=== PATIENT | female | born 1950 | race Caucasian/White ===

== ENCOUNTER → 2019-11-09 10:19 | Outpatient (CLI) | payer MEDICARE, SELFPAY ==
--- NOTE | ~2019-11-09 | XR_ITS ---
XR knee LT 2V DATE: 11/09/2019 10:35 INDICATION: Chronic left knee pain TECHNIQUE: Standing AP and lateral views COMPARISON: None FINDINGS: There is joint space narrowing and periarticular spurring at the patellofemoral and medial compartments. The lateral compartment joint space is well preserved. No fracture or dislocation or joint effusion. No periosteal reaction or bone destruction. 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
== END ==
PROVIDERS: PCP Nurse Practitioner Family; Visit Provider Nurse Practitioner Family
DX: M17.12 Unilateral primary osteoarthritis, left knee (principal); M25.562 Pain in left knee
CPT/HCPCS: 73560

== ENCOUNTER 2020-01-31 07:58 | Outpatient (CLI) | payer MEDICARE, SELFPAY ==
--- NOTE | ~2020-01-31 | MR_ITS ---
EXAMINATION: MR knee LT wo con DATE: 01/31/2020 09:38 INDICATION: Left knee pain. TECHNIQUE: Magnetic resonance imaging (MRI) of the left knee was performed without intravenous contra st. Sequences included axial PD-weighted FS FSE, coronal PD-weighted FSE and PD-weighted FS FSE, sagi ttal PD-weighted FSE, and sagittal T2-weighted FS FSE. COMPARISON: Left knee radiographs 11/09/2019 FINDINGS: Medial compartment: There is an undersurface horizontal tear involving body and posterior horn of medial meniscus. There is a 2.3 x 4.7 x 1.0 cm multiloculated paralabral cyst. There is shallow partial-thickness cartilage loss of tibial condyle and femoral condyle. There is deep partial thickness cartilage loss of femoral condyle involving the central and medial articular surface. Osteophytes are noted. Lateral compartment: Lateral meniscus is normal. There is cartilage surface irregularity of tibial condyle. There is shall ow partial-thickness cartilage loss of femoral condyle involving the central articular surface. There are tiny marginal osteophytes. Patellofemoral compartment: There is full-thickness cartilage loss of patellar medial and lateral facets and median ridge with sm all subchondral cysts. There is full-thickness cartilage loss of medial trochlea with small subchondr al cysts and mild subchondral bone marrow edema-like signal intensity. Ligaments and tendons: The anterior and posterior cruciate ligaments are normal. There are changes of prior sprains of media l collateral ligament and fibular collateral ligament characterized with thickening and increased sig nal intensity proximally. There is mild patellar tendinopathy. Fluid: There is no knee joint effusion. There is mild prepatellar and superficial infrapatellar bursitis. IMPRESSION: 1. Severe chondrosis of patellofemoral compartment, moderate chondrosis of medial compartment, and mi ld chondrosis of lateral compartment. 2. Tear of medial meniscus with large paralabral cyst. Reviewed, dictated and finalized at location A. IMPRESSION: 1. Severe chondrosis of patellofemoral compartment, moderate chondrosis of medi al compartment, and mild chondrosis of lateral compartment. 2. Tear of medial meniscus with large paralabral cyst.
== END 2020-01-31 07:59 | disposition home or self-care (01) ==
PROVIDERS: PCP Internal Medicine; Visit Provider Nurse Practitioner Family
DX: M25.562 Pain in left knee (principal); M22.2X2 Patellofemoral disorders, left knee; S83.242A Other tear of medial meniscus, current injury, left knee, initial encounter; M24.852 Other specific joint derangements of left hip, not elsewhere classified
CPT/HCPCS: 73721

== ENCOUNTER → 2020-11-26 09:26 | Outpatient (CLI) | payer MEDICARE, SELFPAY ==
--- NOTE | ~2020-11-26 | MR_ITS ---
EXAMINATION: MR lumbar spine wo con DATE: 11/26/2020 10:27 INDICATION: Lumbago. TECHNIQUE: Magnetic resonance imaging (MRI) of the lumbar spine was performed without intravenous con trast. Sequences included sagittal T2-weighted FSE, sagittal T2-weighted FS FSE, sagittal T1-weighted FSE, and axial T2-weighted FSE. COMPARISON: None FINDINGS: Bone alignment is normal. Vertebral body heights are normal. There is severely decreased di sc height at L2-L3, mildly decreased disc height at L3-L4, moderately decreased disc height at L4-L5, and mildly decreased disc height at L5-S1. The distal spinal cord signal intensity is normal. The co nus medullaris is at L1. The following disc levels are specifically discussed: L1-L2: The disc is bulging. There is mild bilateral facet joint osteoarthritis. There is mild left ne ural foraminal stenosis. There is mild central canal stenosis. L2-L3: The disc is bulging and has an annular fissure. There is moderate right and mild left facet manuel int osteoarthritis. There is mild bilateral neural foraminal stenosis. There is mild central canal st enosis. L3-L4: The disc is bulging and has an annular fissure. There is moderate bilateral facet joint osteoa rthritis. There is mild bilateral neural foraminal stenosis. There is mild central canal stenosis. L4-L5: The disc is bulging with superimposed left subarticular zone extrusion. There is severe bilate ral facet joint osteoarthritis. There is mild right and moderate left neural foraminal stenosis. Ther e is mild central canal stenosis with asymmetry stenosis of left lateral recess. L5-S1: The disc is bulging and has an annular fissure. There is mild bilateral facet joint osteoarthr itis. There is mild bilateral neural foraminal stenosis. There is mild central canal stenosis. IMPRESSION: 1. Severe lumbar spondylosis. Reviewed, dictated and finalized at location A. TS RECRUITER
== END ==
PROVIDERS: PCP Internal Medicine; Visit Provider Nurse Practitioner Family
DX: M54.5 Low back pain (principal); M47.816 Spondylosis without myelopathy or radiculopathy, lumbar region
CPT/HCPCS: 72148

== ENCOUNTER → 2020-12-17 12:10 | Outpatient (CLI) | payer MEDICARE, SELFPAY ==
--- NOTE | ~2020-12-17 | MM_ITS ---
EXAMINATION: MM screening [facility] BI w rai HISTORY: Screening mammogram TECHNIQUE: Craniocaudal and mediolateral oblique 3-D tomosynthesis images were obtained and synthetic 2-D images were generated. CAD analysis was submitted and interpreted. COMPARISON: 02/23/2019, 02/20/2018, 01/22/2017 BREAST PARENCHYMAL COMPOSITION: There are scattered areas of fibroglandular density. FINDINGS: There is no evidence of suspicious mass, calcification, or architectural distortion to sugg est malignancy in either breast. There has been no suspicious interval change. IMPRESSION: 1. No mammographic evidence of malignancy. 2. Recommend routine screening mammography in one year. BI-RADS Category 1: Negative Reviewed, dictated and finalized at location A.
== END ==
PROVIDERS: PCP Internal Medicine; Visit Provider Obstetrics & Gynecology
DX: Z12.31 Encounter for screening mammogram for malignant neoplasm of breast (principal)
CPT/HCPCS: 77063; 77067

== ENCOUNTER → 2021-02-27 15:53 | Outpatient (CLI) | payer MEDICARE, SELFPAY ==
--- NOTE | ~2021-02-27 | MR_ITS ---
EXAMINATION: MR lumbar spine wo con DATE: 02/27/2021 16:45 INDICATION: Low back pain with radiculopathy. TECHNIQUE: Magnetic resonance imaging (MRI) of the lumbar spine was performed without intravenous con trast. Sequences included sagittal T2-weighted FSE, sagittal T2-weighted FS FSE, sagittal T1-weighted FSE, and axial T2-weighted FSE. COMPARISON: Lumbar spine MRI 11/26/2020 FINDINGS: There is 7 degrees levocurvature of lumbar spine. Vertebral body heights are normal. There is mildly decreased disc height at L1-L2, severely decreased disc height at L2-L3, mildly decreased d isc height at L3-L4, moderately decreased disc height at L4-L5, and mildly decreased disc height at L 5-S1 with endplate remodeling. The distal spinal cord signal intensity is normal. The conus medullari s is at L1-L2. The following disc levels are specifically discussed: L1-L2: The disc is bulging. There is mild bilateral facet joint osteoarthritis. There is mild bilater al neural foraminal stenosis. There is mild central canal stenosis. L2-L3: The disc is bulging and has an annular fissure. There is severe right and moderate left facet joint osteoarthritis. There is moderate right and mild left neural foraminal stenosis. There is mild central canal stenosis. L3-L4: The disc is bulging and has an annular fissure. There is severe right and moderate left facet joint osteoarthritis. There is mild bilateral neural foraminal stenosis. There is mild central canal stenosis. L4-L5: The disc is bulging with superimposed left subarticular zone extrusion with interval improveme nt. There is severe bilateral facet joint osteoarthritis. There is mild right and moderate left neura l foraminal stenosis. There is mild central canal stenosis. L5-S1: The disc is bulging. There is moderate bilateral facet joint osteoarthritis. There is mild carmenza ateral neural foraminal stenosis. There is mild central canal stenosis. IMPRESSION: 1. Severe lumbar spondylosis with interval improvement in the left subarticular zone extrusion at L4- L5. Reviewed, dictated and finalized at location A. IMPRESSION: 1. Severe lumbar spondylosis with interval improvement in the left subarticular zone extrusion at L4-L5.
== END ==
PROVIDERS: PCP Internal Medicine; Visit Provider Neurological Surgery
DX: M54.16 Radiculopathy, lumbar region (principal); M47.816 Spondylosis without myelopathy or radiculopathy, lumbar region
CPT/HCPCS: 72148

== ENCOUNTER → 2021-08-28 12:08 | Outpatient (CLI) | payer MEDICARE, SELFPAY ==
--- NOTE | ~2021-08-28 | DEXA_ITS ---
Bone Density Report Name: FREDDY STEPHEN Age: 71 Sex: Female Ethnicity: White Date of : 1950 Indication: postmenopausal; screening for osteoporosis; height loss; hysterectomy; secondary osteoporosis; Referring Provider: TING, IGOR Fagan Study: Bone densitometry was performed. Exam Date: August 28, 2021 Accession number: [id number] Bone Density: Region BMD T-score Z-score Classification AP Spine (L1, L4) 1.063 0.2 2.3 Normal Femoral Neck (Left) 0.847 0.0 1.7 Normal Total Hip (Left) 0.905 -0.3 1.2 Normal Femoral Neck (Right) 0.888 0.4 2.1 Normal Total Hip (Right) 0.919 -0.2 1.3 Normal Total Hip Mean 0.912 -0.3 1.3 Normal World Health Organization criteria for BMD impression classify patients as: Normal (T-score at or above -1.0), Osteopenia (T-score between -1.0 and -2.5), or Osteoporosis (T-score at or below -2.5). 10-year Fracture Risk: FRAX not reported because: All T-scores for Spine Total, Hip Total, Femoral Neck at or above -1.0 Previous Exams: Region Exam Age BMD T-score BMD Change BMD Change Date g/cm2 vs Baseline vs Previous AP Spine(L1, L4) 08/28/2021 71 1.063 0.2 -0.018 -0.010 09/02/2011 61 1.074 0.3 -0.007 -0.007 04/10/2008 57 1.081 0.4 Total Hip(Left) 08/28/2021 71 0.905 -0.3 -0.076* -0.054* 09/02/2011 61 0.960 0.1 -0.022 -0.022 04/10/2008 57 0.981 0.3 Total Hip(Right) 08/28/2021 71 0.919 -0.2 -0.089* -0.040* 09/02/2011 61 0.960 0.1 -0.049* -0.049* 04/10/2008 57 1.008 0.5 *Denotes significance at 95% confidence level, LSC for AP Spine = 0.022 g/cm2, LSC for Total Hip = 0.027 g/cm2 Clinical Information Provided by Patient: Has secondary osteoporosis Has the following medical conditions: Hysterectomy Patient maximum height was 68.5 Menopause Age: 46 Drinks caffeinated beverages Onset of menses at age 14 Number of children 1 Impression: The patient has normal bone mass. The BMD for the Total Hip(Left) decreased, changing by -0.054 since the last DXA exam. The BMD for the Total Hip(Right) decreased, changing by -0.040 since the last DXA exam. Discussion: BONE DENSITY IS ABOVE THE MINIMUM DESIRABLE LEVEL AT ALL SKELETAL SITES TESTED. This patient?s bone mineral density is above the minimum desirable level (T-score -1.0 or better) at all sites measured. The patient should fo
== END ==
PROVIDERS: PCP Internal Medicine; Visit Provider Internal Medicine
DX: M81.0 Age-related osteoporosis without current pathological fracture (principal)
CPT/HCPCS: 77080

== ENCOUNTER → 2022-01-29 10:22 | Outpatient (CLI) | payer MEDICARE, SELFPAY ==
--- NOTE | ~2022-01-29 | MM_ITS ---
EXAMINATION: MM screening [facility] BI w rai HISTORY: Screening TECHNIQUE: Craniocaudal and mediolateral oblique 3-D tomosynthesis images were obtained and synthetic 2-D images were generated. CAD analysis was submitted and interpreted. COMPARISON: Comparison to multiple prior studies sequentially, with oldest reviewed study dated 11/06. BREAST PARENCHYMAL COMPOSITION: There are scattered areas of fibroglandular density. FINDINGS: There is no evidence of suspicious mass, calcification, or architectural distortion to sugg est malignancy in either breast. There has been no suspicious interval change. IMPRESSION: 1. No mammographic evidence of malignancy. 2. Recommend routine screening mammography in one year. BI-RADS Category 1: Negative Reviewed, dictated and finalized at location A.
== END ==
PROVIDERS: PCP Internal Medicine; Visit Provider Internal Medicine
DX: Z12.31 Encounter for screening mammogram for malignant neoplasm of breast (principal)
CPT/HCPCS: 77063; 77067

== ENCOUNTER 2022-09-11 01:18 | Day surgery (SDC) | payer MEDICARE, SELFPAY ==
[2022-08-29 15:10] VITALS: BMI 22.4
--- NOTE | 2022-09-10 12:25 | PM.HPGS ---
History of Present Illness History of Present Illness Consent: Risks, benefits, and alternatives have been discussed and questions answered. Patient agrees to proceed with procedure. Chief complaint: family hx of colon cancer Narrative: Chelly Velazquez is a 72 year old female Referred for colon cancer screening. She has a family history of colon cancer, her father. Review of Systems Review of Systems: All systems reviewed & are unremarkable except as noted in HPI and below PMFSH Past Medical History Medical History Diabetes type 2, controlled High cholesterol History of ectopic (~1980) RSO Hypertension Ruptured disk (04/21/20) Surgical History Surgical History History of arthroscopy of knee (07/16/17) lt knee History of foot surgery (12/20/18) right foot--2 hammer toes History of hand surgery (08/23/13) History of right oophorectomy (~1980) result of an ectopic History of total abdominal hysterectomy (~1995) [facility] W/ LSO--ovarian cysts/abnormal uterine bleeding Family History Family History Sibling Acute myocardial infarction brother Father Carcinoma of colon Mother Rheumatoid arthritis Other Depression Diabetes mellitus Family history of arthritis Family history of cataracts Family history of thyroid disease Social History Social History Smoking packs per day: 0.5 Smoking cigarettes per day: 10.0 Years smoked: 10 Smoking pack-years: 5.00 Smoking status: Former smoker Tobacco type: cigarettes Alcohol intake: current Alcohol use details: 1 per month Substance use: never Substance use type: does not use Living arrangements: with family Additional living arrangements comments: Gender identity (if verbalized by the patient): Female Sexual Orientation (if Verbalized by the Patient): Straight or Heterosexual Spiritual care concerns: No Meds Home Medications and Allergies Home Medications Medication Instructions Recorded Confirmed Type aspirin 81 mg tablet,delayed 81 mg PO DAILY 02/04/22 08/29/22 History release (Adult Aspirin Regimen) cholecalciferol (vitamin D3) 25 25 mcg PO DAILY 02/04/22 08/29/22 History mcg (1,000 unit) capsule empagliflozin 10 mg-linagliptin 5 1 tablet PO DAILY 02/04/22 08/29/22 History mg tablet (Glyxambi) hydrochlorothiazide 12.5 mg tablet 12.5 mg PO DAILY 02/04/22 08/29/22 History insulin aspart 7 unit subcut DAILY 02/04/22 08/29/22 History (niacinamide)(U-100) 100 unit/mL(3 mL) subcutaneous pen (Fiasp FlexTouch U-100 Insulin) insulin glargine U-300 conc 300 30 unit subcut DAILY 02/04/22 08/29/22 History unit/mL (1.5 mL) subcutaneous pen (Toujeo SoloStar U-300 Insulin) krill oil 1,000 mg-om3 130 mg-dha cap PO 02/04/22 02/04/22 History 40 mg-epa 80 at-yn2-ngs-astax cap losartan 50 mg-hydrochlorothiazide 1 tablet PO DAILY 02/04/22 08/29/22 History 12.5 mg tablet magnesium chloride 71.5 mg 71.5 mg PO BID 02/04/22 08/29/22 History (magnesium chloride) tablet,delayed release (Slow-Mag) metformin 850 mg tablet 850 mg PO BID 02/04/22 08/29/22 History omeprazole magnesium 20 mg 20 mg PO DAILY 02/04/22 08/29/22 History tablet,delayed release (Prilosec OTC) pen needle, diabetic 31 gauge x 02/04/22 02/04/22 History 3/16 (Droplet Pen Needle) simvastatin 20 mg tablet (Zocor) 20 mg PO DAILY 02/04/22 08/29/22 History zolpidem 5 mg tablet 5 mg PO QHS PRN Insomnia 02/04/22 08/29/22 History Allergies Allergy/AdvReac Type Severity Reaction Status Date / Time erythromycin base Allergy Unknown Gastrointestinal Verified 09/11/22 06:16 Upset Penicillins Allergy Unknown Hives Verified 09/11/22 06:16 Exam Const: General: alert Orientat
[2022-09-11] MEDS: LACTATED RINGERS 1,000 ML 150 ML IV CONT (06:30)
[2022-09-11 06:31] VITALS: BP 119/68; PULSE 103; RESP 18; TEMP 35.9; O2SAT 100
--- NOTE | 2022-09-11 07:12 | WPDANESEPPF ---
Anes - Initial Pre Proc Eval Procedure: Operation Date: 09/11/22 07:30 Proposed Procedures p Screening Colonoscopy - Terrell Hensley MD Date/Time: 09/11/22 07:12 Surgeon: Terrell Hensley MD Pre Op Diagnosis: family hx of colon cancer Patient Data Age: 72 Gender: F Height: 1.7 m Weight: 63.9 kg Last Vital Signs Temp 35.9 C L 09/11/22 06:31 Pulse 103 H 09/11/22 06:31 Resp 18 09/11/22 06:31 BP 119/68 09/11/22 06:31 Pulse Ox 100 09/11/22 06:31 O2 Del Method Room Air 09/11/22 06:31 Allergies Allergy/AdvReac Type Severity Reaction Status Date / Time erythromycin base Allergy Unknown Gastrointestinal Verified 09/11/22 06:16 Upset Penicillins Allergy Unknown Hives Verified 09/11/22 06:16 Home Medications Medication Instructions Recorded Confirmed Type aspirin 81 mg tablet,delayed 81 mg PO DAILY 02/04/22 08/29/22 History release (Adult Aspirin Regimen) cholecalciferol (vitamin D3) 25 25 mcg PO DAILY 02/04/22 08/29/22 History mcg (1,000 unit) capsule empagliflozin 10 mg-linagliptin 5 1 tablet PO DAILY 02/04/22 08/29/22 History mg tablet (Glyxambi) hydrochlorothiazide 12.5 mg tablet 12.5 mg PO DAILY 02/04/22 08/29/22 History insulin aspart 7 unit subcut DAILY 02/04/22 08/29/22 History (niacinamide)(U-100) 100 unit/mL(3 mL) subcutaneous pen (Fiasp FlexTouch U-100 Insulin) insulin glargine U-300 conc 300 30 unit subcut DAILY 02/04/22 08/29/22 History unit/mL (1.5 mL) subcutaneous pen (Toujeo SoloStar U-300 Insulin) krill oil 1,000 mg-om3 130 mg-dha cap PO 02/04/22 02/04/22 History 40 mg-epa 80 ox-do0-oyh-astax cap losartan 50 mg-hydrochlorothiazide 1 tablet PO DAILY 02/04/22 08/29/22 History 12.5 mg tablet magnesium chloride 71.5 mg 71.5 mg PO BID 02/04/22 08/29/22 History (magnesium chloride) tablet,delayed release (Slow-Mag) metformin 850 mg tablet 850 mg PO BID 02/04/22 08/29/22 History omeprazole magnesium 20 mg 20 mg PO DAILY 02/04/22 08/29/22 History tablet,delayed release (Prilosec OTC) pen needle, diabetic 31 gauge x 02/04/22 02/04/22 History 3/16 (Droplet Pen Needle) simvastatin 20 mg tablet (Zocor) 20 mg PO DAILY 02/04/22 08/29/22 History zolpidem 5 mg tablet 5 mg PO QHS PRN Insomnia 02/04/22 08/29/22 History Patient hx anesthesia problems: none Family hx anesthesia problems: none Results Review: All pre-operative results and documents have been reviewed as part of the pre-operative evaluation. [facility] Past Medical History Medical History Diabetes type 2, controlled High cholesterol History of ectopic (~1980) RSO Hypertension Ruptured disk (04/21/20) Surgical History Surgical History History of arthroscopy of knee (07/16/17) lt knee History of foot surgery (12/20/18) right foot--2 hammer toes History of hand surgery (08/23/13) History of right oophorectomy (~1980) result of an ectopic History of total abdominal hysterectomy (~1995) [facility] W/ LSO--ovarian cysts/abnormal uterine bleeding Family History Family History Sibling Acute myocardial infarction brother Father Carcinoma of colon Mother Rheumatoid arthritis Other Depression Diabetes mellitus Family history of arthritis Family history of cataracts Family history of thyroid disease Social History Social History Smoking packs per day: 0.5 Smoking cigarettes per day: 10.0 Years smoked: 10 Smoking pack-years: 5.00 Smoking status: Former smoker Tobacco type: cigarettes Alcohol intake: current Alcohol use details: 1 per month Substance use: never Substance use type: does not use Living arrangements: with family Additional living arrangements comments: mar
[2022-09-11 07:20] LABS: Glucose Point of Care 149 mg/dl (65-105)
[2022-09-11 07:46] VITALS: BP 91/51; PULSE 100; RESP 19; O2SAT 98
[2022-09-11 07:56] VITALS: BP 118/59; PULSE 83; RESP 23; O2SAT 100
[2022-09-11 08:06] VITALS: BP 116/67; PULSE 79; RESP 20; O2SAT 100
[2022-09-11 08:09] LABS: Glucose Point of Care 128 mg/dl (65-105)
== END 2022-09-11 08:19 | disposition home or self-care (01) ==
PROVIDERS: PCP Internal Medicine; Visit Provider Internal Medicine Gastroenterology
PROC: 0DJD8ZZ Inspection of Lower Intestinal Tract, Via Natural or Artificial Opening Endoscopic (ICD-10-PCS; CPT 45378; principal; 2022-09-11 07:30)
DX: Z12.11 Encounter for screening for malignant neoplasm of colon (principal); K57.30 Diverticulosis of large intestine without perforation or abscess without bleeding; Z80.0 Family history of malignant neoplasm of digestive organs; E11.9 Type 2 diabetes mellitus without complications; E78.00 Pure hypercholesterolemia, unspecified; I10 Essential (primary) hypertension; Z87.891 Personal history of nicotine dependence; Z79.82 Long term (current) use of aspirin; Z79.4 Long term (current) use of insulin; Z79.84 Long term (current) use of oral hypoglycemic drugs
CPT/HCPCS: G0105; 82948; J2001; J2704; J7120

== ENCOUNTER → 2023-05-06 11:24 | Outpatient (CLI) | payer MEDICARE, SELFPAY ==
--- NOTE | ~2023-05-06 | MM_ITS ---
EXAMINATION: MM screening [facility] BI w rai HISTORY: Screening TECHNIQUE: Craniocaudal and mediolateral oblique 3-D tomosynthesis images were obtained and synthetic 2-D images were generated. CAD analysis was submitted and interpreted. COMPARISON: Comparison to multiple prior studies sequentially, with oldest reviewed study dated 01/01. BREAST PARENCHYMAL COMPOSITION: There are scattered areas of fibroglandular density. FINDINGS: There is no evidence of suspicious mass, calcification, or architectural distortion to sugg est malignancy in either breast. There has been no suspicious interval change. IMPRESSION: 1. No mammographic evidence of malignancy. 2. Recommend routine screening mammography in one year. BI-RADS Category 1: Negative Reviewed, dictated and finalized at location A.
== END ==
PROVIDERS: PCP Obstetrics & Gynecology; Visit Provider Obstetrics & Gynecology
DX: Z12.31 Encounter for screening mammogram for malignant neoplasm of breast (principal)
CPT/HCPCS: 77063; 77067

== ENCOUNTER 2024-10-10 14:43 | Outpatient (CLI) | payer MEDICARE, SELFPAY ==
--- NOTE | ~2024-10-10 | XR_ITS ---
HISTORY: pain in lt hip COMPARISON: 02/24/2024 TECHNIQUE: 2 views of the left hip along with an AP view of the pelvis FINDINGS: No acute fracture or dislocation is identified. Superior lateral sclerosis of the femoral acetabular joint space is present, consistent with osteoart hritis. Joint space narrowing detected within the left SI joint with sclerosis. Fecal stasis within the colon. Air within the rectum. Normal mineralization. IMPRESSION: Degenerative disease without acute fracture or dislocation Reviewed, dictated and finalized at location A. PRODUCTION MANAGER
== END 2024-10-10 14:44 | disposition home or self-care (01) ==
PROVIDERS: PCP Internal Medicine; Visit Provider Internal Medicine
DX: M16.12 Unilateral primary osteoarthritis, left hip (principal)
CPT/HCPCS: 73502

== ENCOUNTER 2025-07-26 08:00 | Outpatient (CLI) | payer MEDICARE, OTHER, SELFPAY ==
--- NOTE | ~2025-07-26 | MR_ITS ---
EXAMINATION: MR cervical spine wo con DATE: 07/26/2025 08:37 INDICATION: Neck pain. TECHNIQUE: Magnetic resonance imaging (MRI) of the cervical spine was performed without intravenous contrast. COMPARISON: None FINDINGS: There is 2 mm anterolisthesis of C3 on C4 and C7 on T1. Vertebral body heights are normal. There is severely decreased disc height at C5-C6. The spinal cord signal intensity is normal. The following disc levels are specifically discussed: C2-C3: The disc does not extend beyond the endplate margin. There is no uncovertebral joint osteoarthritis. There is severe right and moderate left facet joint osteoarthritis. There is no neural foraminal stenosis. There is no central canal stenosis. C3-C4: The disc does not extend beyond the endplate margin. There is mild bilateral uncovertebral joint osteoarthritis. There is mild right and severe left facet joint osteoarthritis. There is mild left neural foraminal stenosis. There is no central canal stenosis. C4-C5: The disc is bulging. There is moderate right and mild left uncovertebral joint osteoarthritis. There is moderate right and severe left facet joint osteoarthritis. There is mild bilateral neural foraminal stenosis. There is mild central canal stenosis. C5-C6: The disc is bulging. There is severe bilateral uncovertebral joint osteoarthritis. There is moderate bilateral facet joint osteoarthritis. There is mild bilateral neural foraminal stenosis. There is mild central canal stenosis. C6-C7: There is a central protrusion. There is mild bilateral uncovertebral joint osteoarthritis. There is mild bilateral facet joint osteoarthritis. There is mild bilateral neural foraminal stenosis. There is mild central canal stenosis. C7-T1: There is a central protrusion. There is mild bilateral uncovertebral joint osteoarthritis. There is severe bilateral facet joint osteoarthritis. There is mild bilateral neural foraminal stenosis. There is mild central canal stenosis. IMPRESSION: 1. Severe cervical spondylosis, worst at C5-C6. Reviewed, dictated and finalized at location E. RGLASS ROLLER
== END 2025-07-26 08:01 | disposition home or self-care (01) ==
PROVIDERS: PCP Neurological Surgery; Visit Provider Internal Medicine
DX: M47.892 Other spondylosis, cervical region (principal)
CPT/HCPCS: 72141